=== PATIENT | female | born 1995 | race Hispanic/Latino ===

== ENCOUNTER 2021-02-03 09:17 | Outpatient (CLI) | payer OTHER ==
[2021-02-04 00:03] LABS: SARS-CoV-2 PCR by NAA Not Detected (NotDetected)
== END 2021-02-03 09:18 | disposition home or self-care (01) ==
LOC: CSHLAB 09:17
PROVIDERS: ATTEND Family Medicine
DX: Z01.812 Encounter for preprocedural laboratory examination (principal); Z20.822 Contact with and (suspected) exposure to COVID-19
CPT/HCPCS: U0003; U0005

== ENCOUNTER 2021-02-07 20:11 | Inpatient (IN) | payer MEDICAID, OTHER, SELFPAY ==
[~2021-02-07 20:11] MED LIST: ePHEDrine Sulfate 50 MG/10 ML VIAL ONE
[2021-02-07] MEDS ORDERED: Butorphanol Tartrate 1 MG/ML VIAL SLOW IVP PRN (21:11)
[2021-02-07] MEDS ORDERED: Ibuprofen 800 MG TAB PO PRN (21:11)
[2021-02-07] MEDS ORDERED: Diphenoxylate HCl/Atropine Tablet PO PRN (21:11)
[2021-02-07] MEDS ORDERED: Promethazine HCl 25 MG/ML VIAL IM PRN (21:11)
[2021-02-07] MEDS ORDERED: Ondansetron PF 4 MG/2 ML Vial IVP PRN (21:11)
[2021-02-07] MEDS ORDERED: HYDROcodone/Acetaminophen 5/325 mg Tablet PO PRN (21:11)
[2021-02-07] MEDS ORDERED: hydrALAZINE 20 MG/ML VIAL SLOW IVP PRN (21:11)
[2021-02-07] MEDS ORDERED: Methylergonovine 0.2 MG/ML VIAL IM PRN (21:11)
[2021-02-07] MEDS ORDERED: Acetaminophen 500 MG TAB PO PRN (21:11)
[2021-02-07] MEDS ORDERED: Carboprost 250 MCG/ML AMP IM PRN (21:11)
[2021-02-07] MEDS ORDERED: Misoprostol 200 MCG TAB PR PRN (21:11)
[2021-02-07] MEDS ORDERED: Lidocaine 1% (PF) 30 ML VIAL SC PRN (21:11)
[2021-02-07 21:12] VITALS: BMI 39.6
[2021-02-07] MEDS ORDERED: Penicillin G Potassium 5 MILL.UNITS in Sodium Chloride 0.9% 100 ML IVPB SCH (21:30)
[2021-02-07] MEDS ORDERED: NS w/ Oxytocin 30 units 500 ML IV SCH ×2 (22:00)
[2021-02-07] MEDS ORDERED: NS w/ Oxytocin 30 units 500 ML IVPB SCH (22:00)
[2021-02-07] MEDS: Lactated Ringer's 1,000 ML IV SCH (22:21)
[2021-02-07] MEDS: Misoprostol 100 MCG TAB PO SCH (22:22)
[2021-02-07 23:01] LABS: Hemoglobin 10.8 g/dL (12.0-15.5); Mean Corpuscular HGB CONC 32.2 g/dL (32.0-36.0); Mean Corpuscular Hemoglobin 26.7 pg (27.0-33.0); Mean Corpuscular Volume 82.7 fl (81.6-98.3); Mean Platelet Volume 12.6 fl (7.4-10.4); Platelet Count 160 10x3/uL (150-450); RBC Distribution Width 14.6 % (11.5-14.5); Red Blood Cell (RBC) Count 4.05 10x6/uL (3.90-5.03); White Blood Cell (WBC) Count 10.4 10x3/uL (3.5-10.5)
[2021-02-07 23:38] LABS: Hep B Surf Ag Non-Reactive S/CO (NonReactive)
[2021-02-07 23:39] LABS: Syphilis Antibody Nonreactive (Nonreactive); Syphilis Antibody Index 0.04 S/CO (<1.00 Non-Reactive)
[2021-02-07 23:45] LABS: HBSAg Index 0.25 S/CO (0-0.99)
[2021-02-08] MEDS: Penicillin G 2.5 MILL.units 2.5 MILL.UNITS in Premix Bag 1 BAG IVPB SCH ×4 (02:39→11:05)
[2021-02-08] MEDS: Misoprostol 100 MCG TAB PO SCH ×2 (03:40→08:20)
[2021-02-08] MEDS ORDERED: Fentanyl 2 mcg/Bup 0.1% Cadd 100 ML ONE (09:02)
[2021-02-08] MEDS: Lactated Ringer's 1,000 ML IV SCH ×2 (09:11→09:30)
[2021-02-08] MEDS ORDERED: Acetaminophen 325 MG TAB PO PRN (09:30)
[2021-02-08] MEDS ORDERED: diphenhydrAMINE 50 MG/ML VIAL IVP PRN (09:30)
[2021-02-08] MEDS ORDERED: Hydrocerin (Eucerin) Cream 120 gm Jar TOP PRN (09:30)
[2021-02-08] MEDS ORDERED: Naloxone HCl 0.4 mg/ml Vial IVP PRN ×2 (09:30)
[2021-02-08] MEDS ORDERED: ePHEDrine Sulfate 50 MG/10 ML VIAL SLOW IVP PRN (09:30)
[2021-02-08] MEDS ORDERED: Promethazine HCl 25 MG/ML VIAL IM PRN ×2 (09:30→16:24)
[2021-02-08] MEDS ORDERED: Ondansetron PF 4 MG/2 ML Vial IVP PRN ×2 (09:30→16:24)
[2021-02-08] MEDS ORDERED: Fentanyl 2 mcg/Bupivacaine 0.1% Cassette 100 ML EPIDURAL SCH (09:30)
[2021-02-08] MEDS ORDERED: Lactated Ringer's 500 ML IV PRN (09:30)
[2021-02-08] MEDS ORDERED: Communication Order-Pharmacy FS SCH (09:30)
[2021-02-08] MEDS ORDERED: Boostrix 0.5 ML (Tdap) VIAL IM ONE (16:24)
[2021-02-08] MEDS ORDERED: Bisacodyl 10 MG SUPP PR PRN (16:24)
[2021-02-08] MEDS ORDERED: Lanolin Ointment 7 GM TUBE TOP PRN (16:24)
[2021-02-08] MEDS ORDERED: diphenhydrAMINE 25 MG CAP PO PRN (16:24)
[2021-02-08] MEDS ORDERED: hydrALAZINE 20 MG/ML VIAL SLOW IVP PRN (16:24)
[2021-02-08] MEDS ORDERED: Preparation H Ointment 28 GM TUBE PR PRN (16:24)
[2021-02-08] MEDS ORDERED: HYDROcodone/Acetaminophen 5/325 mg Tablet PO PRN (16:24)
[2021-02-08] MEDS ORDERED: NS w/ Oxytocin 30 units 500 ML IV SCH (16:24)
[2021-02-08] MEDS ORDERED: Milk Of Magnesia 30 ML UDCUP PO PRN (16:24)
[2021-02-08] MEDS: Ferrous Sulfate 325 MG TAB PO SCH (18:27)
[2021-02-08] MEDS: Ibuprofen 800 MG TAB PO SCH (18:27)
[2021-02-08] MEDS: Docusate Calcium (SURFAK) 240 MG CAP PO SCH (21:20)
[2021-02-09] MEDS: Ibuprofen 800 MG TAB PO SCH ×4 (00:30→21:53)
[2021-02-09] MEDS: Ferrous Sulfate 325 MG TAB PO SCH ×2 (08:26→16:40)
[2021-02-09] MEDS: Docusate Calcium (SURFAK) 240 MG CAP PO SCH ×2 (08:27→21:53)
[2021-02-09] MEDS: Prenatal Vitamin 1 TAB PO SCH (08:27)
[2021-02-09] MEDS: Penicillin G 2.5 MILL.units 2.5 MILL.UNITS in Premix Bag 1 BAG IVPB SCH (13:02)
[2021-02-09] MEDS ORDERED: Milk Of Magnesia 30 ML UDCUP PO SCH (15:30)
[2021-02-10] MEDS: Ibuprofen 800 MG TAB PO SCH ×2 (06:23→14:20)
[2021-02-10] MEDS: Ferrous Sulfate 325 MG TAB PO SCH ×2 (07:31→17:10)
[2021-02-10 08:06] VITALS: BP 119/77; TEMP 98.6
[2021-02-10] MEDS ORDERED: Milk Of Magnesia 30 ML UDCUP PO SCH (09:00)
[2021-02-10] MEDS: Docusate Calcium (SURFAK) 240 MG CAP PO SCH (09:06)
[2021-02-10] MEDS: Prenatal Vitamin 1 TAB PO SCH (09:06)
== END 2021-02-10 18:10 | disposition home or self-care (01) | DRG 807 ==
LOC: CSHLD 20:11 → CSHPP 02-08 16:00
PROVIDERS: ADMIT Family Medicine; ATTEND Family Medicine
PROC: 10907ZC Drainage of Amniotic Fluid, Therapeutic from Products of Conception, Via Natural or Artificial Opening (ICD-10-PCS; 2021-02-07)
PROC: 3E0DXGC Introduction of Other Therapeutic Substance into Mouth and Pharynx, External Approach (ICD-10-PCS; 2021-02-07)
PROC: 10E0XZZ Delivery of Products of Conception, External Approach (ICD-10-PCS; principal; 2021-02-08)
DX: O69.81X0 Labor and delivery complicated by cord around neck, without compression, not applicable or unspecified (principal); Z37.0 Single live birth; Z3A.39 39 weeks gestation of pregnancy
CPT/HCPCS: 51702; 85027; 86780; 86850; 86900; 86901; 87340; J2540; J2590; J3490; J7120